=== PATIENT | female | born 1975 | race Caucasian/White ===

== ENCOUNTER → 2020-12-27 04:18 | Outpatient (CLI) | payer BC, SELFPAY ==
[2020-12-27 19:03] LABS: SARS-CoV-2 RNA PCR Negative
== END ==
PROVIDERS: Visit Provider Obstetrics & Gynecology
DX: Z01.812 Encounter for preprocedural laboratory examination (principal); Z20.822 Contact with and (suspected) exposure to COVID-19
CPT/HCPCS: C9803; U0003; U0005

== ENCOUNTER 2020-12-27 08:48 | Outpatient (CLI) | payer BC, SELFPAY ==
[2020-12-27 09:27] LABS: Basophils Absolute Auto 0.1 K/mm3 (0.0-0.1); Basophils Percent Auto 1.2 % (0.2-1.2); Eosinophils Absolute Auto 0.2 K/mm3 (0-0.3); Eosinophils Percent Auto 2.6 % (0-4.4); Hematocrit 32.3 % (37.0-47.0); Hemoglobin 9.4 g/dL (12.0-15.0); Immature Granulocyte Absolute 0.03 K/mm3 (0.00-0.031); Immature Granulocyte Percent A 0.5 % (0-0.5); Lymphocytes Percent Auto 27.2 % (18.3-44.2); Mean Corpuscular HGB Conc 29.1 g/dl (32-36); Mean Corpuscular Volume 72.3 fl (80-100); Mean Platelet Volume 9.8 fl (7.4-10.4); Monocytes Absolute Auto 0.3 K/mm3 (0.1-0.6); Monocytes Percent Auto 4.4 % (2.6-8.5); Neutrophils Absolute Auto 4.2 K/mm3 (1.3-6.7); Neutrophils Percent Auto 64.1 % (45.5-73.1); Platelet Count Result 370 k/mm3 (150-375); Red Blood Count 4.47 M/mm3 (4.2-5.4); Red Cell Distribution Width 16.7 % (11.5-14.5); White Blood Count 6.6 K/mm3 (4.5-10.0)
[2020-12-27 09:31] LABS: Add Urine Microscopic? NO; Appearance Urine Clear (Clear); Bilirubin Urine Negative (Negative); Blood Urine Negative (Negative); Color Urine Straw (Yellow); Glucose Urine UA Negative (Negative); Ketones Urine Negative (Negative); Leukocyte Esterase Ur Negative LEU/UL (NEGATIVE); Nitrate Urine Negative (Negative); Protein Urine Negative (Negative); Urobilinogen Urine Negative mg/dL (<2.0)
[2020-12-27 09:58] LABS: Alanine Aminotransferase 19 U/L (4-35); Albumin Level 4.3 g/dL (3.5-5.1); Alkaline Phosphatase 63 U/L (38-126); Anion Gap 6 mmol/L (8-16); Aspartate Amino Transferase 29 U/L (14-36); Bilirubin,Total 0.1 mg/dL (0.2-1.3); Blood Urea Nitrogen 11 mg/dL (7-17); Calcium 8.6 mg/dL (8.4-10.2); Carbon Dioxide 28 mmol/L (22-30); Chloride 107 mmol/L (98-107); Estimated Glomerular Filt Rate > 60; Glucose 90 mg/dL (65-105); Potassium 4.2 mmol/L (3.4-5.0); Sodium 141 mmol/L (137-145)
[2020-12-27 10:02] LABS: Creatinine Urine 55.4 mg/dL
[2020-12-27 10:13] LABS: MALB Creatinine Ratio < 10.8 mg/g (0-30); Microalbumin Urine Random < 6.0 mg/L (0-16.7); Platelet Estimate Adequate (Adequate)
[2020-12-27 10:15] LABS: Anisocytosis 1+ (NORMAL); Hypochromasia 2+ (NORMAL); Ovalocytes 1+ (NORMAL); Poikilocytosis 1+ (NORMAL)
== END 2020-12-27 08:49 | disposition home or self-care (01) ==
PROVIDERS: Visit Provider Obstetrics & Gynecology
DX: N85.2 Hypertrophy of uterus (principal)
CPT/HCPCS: 36415; 80053; 81003; 82043; 85025; 86850; 86900; 86901

== ENCOUNTER 2020-12-30 02:00 | Day surgery (SDC) | payer BC, SELFPAY ==
[2020-12-15 11:27] VITALS: BMI 24.9
--- NOTE | 2020-12-27 10:31 | P.HP_ITS ---
H&P: HPI History of Present Illness Date/Time: 12/27/20 10:31 Autumn Foster is a 45-year-old 1 para 1 admitted for robotic total vaginal hysterectomy bilateral salpingectomy tension-free vaginal tape and rectocele repair. She has had pain bleeding and has a second-degree prolapse with an enlarged uterus. She was offered alternatives including but not exclusive of IUDs etc risks and benefits of this procedure reviewed including but not exclusive , aspiration pneumonia, bleeding, transfusion, per foration injury to bowel, bladder, ureters, or other internal organs with need for open laparotomy. She received the [employer] handout entitled hysterectomy as well as a div injury handout. She received the DVT in and had all questions answered. She asked to proceed Chief Complaint: if prolapse/stress urinary incontinence / rectocele Review of Systems Review of Systems: All systems reviewed & are unremarkable except as noted in HPI and below PMFSH Family History Family History Father Hypertension Family history of coronary artery disease Social History Social History Smoking status: Never smoker Alcohol intake: never Substance use: never Substance use type: does not use Spiritual care concerns: No Meds Home Medications and Allergies Home Medications Medication Instructions Recorded Confirmed Type Bacopa With Ginkgo 750 mg PO DAILY 12/15/20 12/15/20 History Kevin 500 mg PO DAILY 12/15/20 12/15/20 History bupropion HCl 150 mg PO DAILY 12/15/20 12/15/20 History clonazepam 0.5 mg PO BID PRN 12/15/20 12/15/20 History indomethacin 50 mg PO BID PRN 12/15/20 12/15/20 History pantoprazole 40 mg PO DAILY 12/15/20 12/15/20 History scopolamine base 1 patch TRANSDERMAL Q3D PRN 12/15/20 12/15/20 History venlafaxine 37.5 mg PO HS 12/15/20 12/15/20 History Allergies Allergy/AdvReac Type Severity Reaction Status Date / Time No Known Allergies Allergy Unverified 12/15/20 11:21 Exam Const: General: no acute distress Eyes: General: appearance normal, both eyes and all related structures Neck: Neck: supple and no JVD Thyroid: thyroid normal Resp: Effort & Inspection: normal respiratory effort Auscultation: clear to auscultation bilaterally Cardio: Rate: regular rate Rhythm: regular rhythm GI: Inspection: non-distended GI Palp: Yes Soft to palpation, No Tenderness to palpation present (GI) and No Guarding due to palpation present (GI) Auscultation: normal bowel sounds : General: Yes bladder normal to palpation External Female Exam: normal external appearance Speculum Exam - Vagina: normal palpation ( rectocele palpated) Speculum Exam - Cervix: normal appearance of the cervix Bimanual exam- vagina & uterus: enlarged and other ( second-degree prolapse noted) Skin: General skin exam: no rashes or lesions noted Extrem: General: normal to inspection and no edema Psych: Mental Status: mental status grossly normal Affect: normal affect Assessment and Plan Additional Plan impression: Enlarged uterus/ pelvic pain / stress urinary incontinence/ symptomatic rectocele Plan: Robotic total vaginal hysterectomy / bilateral salpingectomies / tension- free vaginal tape / rectocele repair
[2020-12-30] VITALS (14 sets, daily range): BP systolic 97–149; BP diastolic 53–90; PULSE 80–100; RESP 12–18; TEMP 36.2–37.2; O2SAT 95–100
--- NOTE | 2020-12-30 06:40 | WPDHPUPDATE1 ---
History and Physical Update Update Date/Time: 12/30/20 06:40 History and Physical has been reviewed, including an updated exam of the patient. There are NO changes in the patient's condition. Risks, benefits, and alternatives have been discussed and questions answered. Patient agrees to proceed with procedure.
--- NOTE | 2020-12-30 06:43 | WPDANESEPPF ---
Anes - Initial Pre Proc Eval Procedure: Operation Date: 12/30/20 07:30 Proposed Procedures p Robotic Assisted Total Vaginal Hysterectomy, Bilateral Salpingectomy - Ramírez Duffy MD s Trans Vaginal Taping, Rectocele Repair - Ramírez Duffy MD Date/Time: 12/30/20 06:43 Surgeon: Ramírez Duffy MD Pre Op Diagnosis: enlarge uterus, pain, irreg heavy bleed, AMY,recto Patient Data Age: 45 Gender: F Height: 5 ft 5 in Weight: 68 kg Allergies Allergy/AdvReac Type Severity Reaction Status Date / Time No Known Allergies Allergy Unverified 12/15/20 11:21 Home Medications Medication Instructions Recorded Confirmed Type Bacopa With Ginkgo 750 mg PO DAILY 12/15/20 12/15/20 History Kevin 500 mg PO DAILY 12/15/20 12/15/20 History bupropion HCl 150 mg PO DAILY 12/15/20 12/15/20 History clonazepam 0.5 mg PO BID PRN 12/15/20 12/15/20 History indomethacin 50 mg PO BID PRN 12/15/20 12/15/20 History pantoprazole 40 mg PO DAILY 12/15/20 12/15/20 History scopolamine base 1 patch TRANSDERMAL Q3D PRN 12/15/20 12/15/20 History venlafaxine 37.5 mg PO HS 12/15/20 12/15/20 History hydrocodone-acetaminophen 1 tablet PO Q6H PRN #30 tablet 12/30/20 Rx Patient hx anesthesia problems: post op nausea/vomiting Family hx anesthesia problems: none PMFSH Past Medical History Medical History Anxiety Depression Kidney donor Surgical History Surgical History H/O arthroscopic knee surgery Family History Family History Father Hypertension Family history of coronary artery disease Social History Social History Smoking status: Never smoker Alcohol intake: never Substance use: never Substance use type: does not use Living arrangements: with family Spiritual care concerns: No Anes - Eval Final PreProcedure Day of Procedure 12/30/20 06:43 Patient weight: normal Heart: regular rate and rhythm Lungs: clear to auscultation Airway: Mallampati scale class II Neurological: alert and oriented Last oral intake: >/= 8 hours ASA classification: II Emergent: no Anesthetic plan: proceed Anesthesia type and monitoring: general ETT and standard monitoring Informed Consent: The patient's anesthetic plan and its attendant risks and benefits were discussed with the patient/family/POA. Questions were solicited and answers provided to the satisfaction of the patient/family/POA.
[2020-12-30] MEDS: ACETAMINOPHEN 500 MG TABLET 1000 MG PO (06:48)
[2020-12-30] MEDS: SCOPOLAMINE 1.5 MG PATCH TRANSDERM (07:04)
[2020-12-30] MEDS: LACTATED RINGERS 1,000 ML 30 ML IV CONT ×2 (07:06→10:12)
[2020-12-30] MEDS: KETOROLAC 15 MG/ML VIAL (*BKC) IV PUSH (07:08)
[2020-12-30] MEDS: ceFAZolin 2 GM/D5W 50 ML 2 GM/50 ML BAG IVPB (07:30)
--- NOTE | 2020-12-30 09:17 | PM.PROC ---
Procedure Note - Detailed Date of procedure: 12/30/20 Pre-op diagnosis: enlarge uterus, pain, irreg heavy bleed, AMY,recto Surgeon: Ramírez Duffy MD Postop diagnosis: Enlarged uterus/pelvic pain his/bleeding refractory to medical therapy/stress urinary incontinence/symptomatic rectocele Procedure: Robotic total vaginal hysterectomy/bilateral salpingectomies/lysis of adhesions/tension-free vaginal tape/cystoscopy/posterior repair EBL: 50cc Anesthesia: General endotracheal Complications: None Findings: Extensive adhesions anteriorly from the omentum to the anterior abdominal wall the uterus. Enlarged uterus. Normal-appearing ovaries. Description of procedure: Patient was prepped and draped in the normal sterile fashion placed in the dorsal lithotomy position. Under excellent general endotracheal anesthesia weighted speculum placed in posterior fornix of vagina. Anterior lip of the cervix was grasped with a single-tooth tenaculum and the uterus sounded to 10cm. Serial dilatation with fragmented dilators performed followed passes the 8. SAUMYA and the number 3 cold cup. Next the 16 Ethiopian catheter was placed in the bladder draining clear urine. The weighted speculum was removed. The gloves were changed. A supraumbilical incision was made the Veress needle passed in the abdomen. Abdomen was filled with CO2 gas [id number]. The 8mm trocar advanced in the abdomen and the downside visualized. No injury seen. The gas reattached and the patient placed in Trendelenburg. Left and right lower quadrant incisions were made the 8mm trocars advanced under direct visualization assuring no injury. A right upper quadrant incision made the 10mm trocar advanced under direct visualization assuring no injury. Multiple adhesions were seen and these were sharply dissected using Endo Sandie and cautery until the uterus could eventually be seen. The robot was docked. Attention was then turned to the phone counselor. The left round ligament was grasped, burned, cut and a bladder flap formed anteriorly with the bladder being pushed caudally from the uterus and cervix. The left fallopian tube was grasped i an dissected away from the ovary in like fashion the right fallopian tube was grasped and dissected away from the right ovary. The left utero-ovarian ligament was clamped, burned, cut and brought to the level of previously round ligament conserving the left ovary. The right utero-ovarian ligament was clamped, burned, cut and brought to the level of the previously cut round ligament conserving the right ovary. Next the left cardinal and broad ligaments were serially skeletonized. These were clamped, burned, cut and brought down the level of the lateral edge of the uterus in like fashion the cardinal and broad ligaments on the right were serially skeletonized. These were clamped, burned, cut and brought down the level to the uterine vessels. The uterine vessels on the left were then serially clamped, burned, cut. The uterine vessels on the right were serially clamped, burned, cut. Excellent blanching the uterus was seen and a colpotomy incision made. The vagina was closed with continuous running 0V lock from lateral edge to lateral edge and back to the midline. Excellent hemostasis was seen and the robot was then undocked. Gas removed from the abdomen in the in trocars removed and the incisions closed with 4 Monocryl and glue. Attention was turned to the TVT. An 18 Ethiopian catheter was used to replace 16 Ethiopian catheter. An infra urethral incision was made and the lateral spaces entered by blunt dissection. Urethral guide was placed the urethra dissected the lateral were reflected laterally and the TVT device was entered through the by the pubic bone at a 45 degree angle upto30? to the fashion scan the urethra was redirected in the opposite direction this was repeated on the left side. These were brought up to the level of an open PI clamped. The 70degree cystoscope was i
[2020-12-30] MEDS: fentaNYL CITRATE INJ (*CRX) 100 MCG/2 ML VIAL 25 MCG IV PUSH ×5 (09:59→10:21)
--- NOTE | 2020-12-30 11:17 | ADMGEN ---
This patient, Dania Foster, was admitted to OB 2nd Floor Room 289-00. Patient/family oriented to hospital policies and general routines including ID bracelet, bed and alarms, visiting hours, pain management, procedures, bathroom and other care routines, personal items, smoking policy, room service/diet, and visiting hours. Information on how to activate the Rapid Response Team has been discussed. Patient/Family are encouraged to report perceived risks to care and to ask questions if they do not understand what they are told or what they should do.
[2020-12-30] MEDS: DEXTROSE 5%/LACTATED RINGERS 1,000 ML 125 ML IV CONT (11:34)
[2020-12-30] MEDS: KETOROLAC 30 MG/ML VIAL (*BKC) IV PUSH (13:22)
[2020-12-30] MEDS: DOCUSATE SODIUM 100 MG CAPSULE PO (17:57)
[2020-12-30] MEDS: HYDROcodone/acetaminophen (*CRX) 5-325 MG TABLET 1 TAB PO (17:58)
[2020-12-30] MEDS: HYDROcodone/acetaminophen (*CRX) 10-325 MG TABLET 1 TAB PO (21:00)
[2020-12-30] MEDS: buPROPion HCL 75 MG TABLET 150 MG PO (21:01)
[2020-12-30] MEDS: VENLAFAXINE HCL 37.5 MG TABLET PO (21:01)
[2020-12-31 00:10] VITALS: BP 113/72; PULSE 96; RESP 18; TEMP 36.8; O2SAT 100
[2020-12-31 04:50] VITALS: BP 118/75; PULSE 87; RESP 16; TEMP 36.8; O2SAT 100
[2020-12-31 06:36] LABS: Basophils Absolute Auto 0.1 K/mm3 (0.0-0.1); Basophils Percent Auto 0.5 % (0.2-1.2); Eosinophils Percent Auto 0.1 % (0-4.4); Hematocrit 26.9 % (37.0-47.0); Hemoglobin 7.9 g/dL (12.0-15.0); Immature Granulocyte Absolute 0.06 K/mm3 (0.00-0.031); Immature Granulocyte Percent A 0.5 % (0-0.5); Lymphocytes Absolute Auto 2.14 K/mm3 (0.9-3.2); Lymphocytes Percent Auto 17.3 % (18.3-44.2); Mean Corpuscular HGB Conc 29.4 g/dl (32-36); Mean Corpuscular Hemoglobin 21.3 pg (26-34); Mean Corpuscular Volume 72.5 fl (80-100); Mean Platelet Volume 10.2 fl (7.4-10.4); Monocytes Absolute Auto 0.8 K/mm3 (0.1-0.6); Monocytes Percent Auto 6.2 % (2.6-8.5); Neutrophils Absolute Auto 9.3 K/mm3 (1.3-6.7); Neutrophils Percent Auto 75.4 % (45.5-73.1); Platelet Count Result 305 k/mm3 (150-375); Red Blood Count 3.71 M/mm3 (4.2-5.4); Red Cell Distribution Width 16.3 % (11.5-14.5); White Blood Count 12.4 K/mm3 (4.5-10.0)
[2020-12-31 07:43] LABS: Anisocytosis 1+ (NORMAL); Hypochromasia 1+ (NORMAL); Ovalocytes 1+ (NORMAL); Platelet Estimate Adequate (Adequate)
--- NOTE | 2020-12-31 07:52 | P.PNAN_ITS ---
Anes - Prog Note Post-Op Date/Time: 12/31/20 07:52 Cardiovascular status: normal Respiratory status: normal Airway patency: baseline Mental status: baseline Post-Op hydration status: normal Vital Signs: Last Vital Signs Temp 36.8 C 12/31/20 04:50 Pulse 87 12/31/20 04:50 Resp 16 12/31/20 04:50 BP 118/75 12/31/20 04:50 Pulse Ox 100 12/31/20 04:50 Pain Score (VAS): 3 I/O: Intake & Output 12/30/20 12/30/20 12/31/20 15:59 23:59 07:59 Intake Total 1210 1580 1200 Output Total 1575 550 400 Balance -365 1030 800 Laboratory Tests 12/31/20 05:31 12/31/20 05:31 WBC 12.4 H RBC 3.71 L Hgb 7.9 L Hct 26.9 L MCV 72.5 L MCH 21.3 L MCHC 29.4 L RDW 16.3 H Plt Count 305 MPV 10.2 Immature Gran % (Auto) 0.5 Neut % (Auto) 75.4 H Lymph % (Auto) 17.3 L [place] % (Auto) 6.2 Eos % (Auto) 0.1 Baso % (Auto) 0.5 Lymph # (Auto) 2.14 [place] # (Auto) 0.8 H Eos # (Auto) 0.0 Baso # (Auto) 0.1 Abs Immat Gran (auto) 0.06 H Absolute Neuts (auto) 9.3 H Absolute Nucleated RBC 0.0 Nucleated RBC % 0.0 Platelet Estimate Adequate Hypochromasia 1+ Anisocytosis 1+ Ovalocytes 1+ Post-procedural complaints: none Patient Feedback: Patient satisfied with anesthetic care.
[2020-12-31 07:55] VITALS: BP 135/74; PULSE 85; RESP 18; TEMP 36.8; O2SAT 100
--- NOTE | 2020-12-31 08:18 | PM.DS ---
DS: Admitting Diagnosis Admitting Diagnosis Admitting Diagnosis: abnormal uterine bleeding, pelvic pain, pelvic prolapse DS: Summary Hospital Course Hospital Course: Dania Foster was admitted after robotic assisted total laparoscopic hysterectomy and bilateral salpingectomy and TVT for abnormal uterine bleeding, pelvic pain, and pelvic prolapse. The above procedure was performed with no complications. She is doing well post op. She states her pain is well controlled with PO medications. She reports minimal bleeding. She is ambulating up to the chair. Her patel catheter was removed. She is tolerating PO without N/V. She reports passing flatus. Status at Discharge Overall status at discharge: patient is progressing back to baseline Time Spent with Patient Time attestation: Total time spent providing and/or coordinating discharge services: Time spent: Less than 30 minutes Exam Const: General: comfortable and no acute distress Limitations: no limitations Resp: Effort & Inspection: normal respiratory effort Auscultation: clear to auscultation bilaterally Cardio: Rate: regular rate Rhythm: regular rhythm GI: Inspection: non-distended GI Palp: Yes Soft to palpation, Yes Tenderness to palpation present (GI) (milder tenderness to deep palpation) and No Guarding due to palpation present (GI) Auscultation: normal bowel sounds Other: incisions C/D/I covered with dermabond Urinary Catheter: Urinary Catheter: urine clear Skin: General skin exam: normal color Extrem: General: normal to inspection Psych: Mental Status: mental status grossly normal Affect: normal affect DS: Data Data Completed and Pending Pending studies at discharge: Pending at discharge 12/30/20 08:27 Surgical [PTH] Routine Labs on day of discharge: Labs from last 24 hours 12/31/20 05:31 WBC 12.4 H RBC 3.71 L Hgb 7.9 L Hct 26.9 L MCV 72.5 L MCH 21.3 L MCHC 29.4 L RDW 16.3 H Plt Count 305 MPV 10.2 Immature Gran % (Auto) 0.5 Neut % (Auto) 75.4 H Lymph % (Auto) 17.3 L [place] % (Auto) 6.2 Eos % (Auto) 0.1 Baso % (Auto) 0.5 Lymph # (Auto) 2.14 [place] # (Auto) 0.8 H Eos # (Auto) 0.0 Baso # (Auto) 0.1 Abs Immat Gran (auto) 0.06 H Absolute Neuts (auto) 9.3 H Absolute Nucleated RBC 0.0 Nucleated RBC % 0.0 Platelet Estimate Adequate Hypochromasia 1+ Anisocytosis 1+ Ovalocytes 1+ Discharge Plan Discharge Patient Disposition: Home, Self-Care Patient Instructions: Laparoscopic Hysterectomy (DC) Stand Alone Forms: General Discharge Instructions Follow-up/Referrals: Ramírez Duffy MD [Physician] - Discharge Medications: New hydrocodone-acetaminophen 5-300 mg tablet 1 tablet PO Q6H PRN (Reason: pain) Qty: 30 RF: 0 No Action bupropion HCl 150 mg Tablet Sustained-Release 12 Hr 150 mg PO DAILY RF: 0 clonazepam 0.5 mg Tablet 0.5 mg PO BID PRN (Reason: Anxiety) RF: 0 pantoprazole 40 mg Tablet,Delayed Release (Dr/Ec) 40 mg PO DAILY RF: 0 indomethacin 50 mg Capsule 50 mg PO BID PRN (Reason: Migraine Headache) RF: 0 scopolamine base 1 mg over 3 days Patch 3 Day 1 patch TRANSDERMAL Q3D PRN (Reason: Motion Sickness) RF: 0 venlafaxine 37.5 mg Tablet Extended Release 24hr 37.5 mg PO HS RF: 0 Bacopa With Ginkgo 750 mg PO DAILY RF: 0 Kevin 500 mg PO DAILY RF: 0
[2020-12-31 09:15] VITALS: PULSE 85; RESP 18; O2SAT 100
[2020-12-31] MEDS: DOCUSATE SODIUM 100 MG CAPSULE PO (09:29)
[2020-12-31] MEDS: ENOXAPARIN 40 MG/0.4 ML SYRINGE SUB-Q (09:29)
== END 2020-12-31 10:35 | disposition home or self-care (01) ==
LOC: ANHSURGERY 06:03 → ANHOB2 10:43
PROVIDERS: Visit Provider Obstetrics & Gynecology
PROC: (CPT 58552; principal; 2020-12-30 07:30)
PROC: (CPT 57260; 2020-12-30 07:30)
DX: N80.0 Endometriosis of uterus (principal); N81.2 Incomplete uterovaginal prolapse; N93.9 Abnormal uterine and vaginal bleeding, unspecified; R10.2 Pelvic and perineal pain; N39.3 Stress incontinence (female) (male); F41.8 Other specified anxiety disorders
CPT/HCPCS: 58552; 57288; 57250; S2900; 36415; 85025; 88307; 99199; A9270; C1771; C9803; J0690; J1100; J1200; J1650; J1885; J2250; J2405; J2704; J2710; J3010; J7030; J7120; J7121; U0003; U0005